=== PATIENT | male | born 1950 | race American Indian/Alaskan Native ===

== ENCOUNTER 2017-02-02 10:44 | Emergency (ER) | payer MEDICARE ==
--- NOTE | 2017-02-02 11:39 | Emergency Department Report ---
ED General Adult HPI - General Chief complaint: Tube Replacement Stated complaint: WAGNER CATHETER REMOVAL Time Seen by Provider: 02/02/17 11:31 Source: patient, EMS Mode of arrival: Stretcher Limitations: Physical Limitation - History of Present Illness Initial comments: Patient is a 66-year-old male past medical history of BPH. Who presents with Wagner catheter removal. Patient states that he was walking earlier on today and then his Wagner tubing got trapped and kinked and got pulled out. He denies having any pain or any blood coming from his urethra. He states that he came into the emergency department to get his Wagner catheter replaced. He has a catheter secondary to bladder obstruction. Patient didn't know the exact reason why he had a Wagner catheter. Pt has been givien cefuroximen 500mg every 12 hours for 7 days pt has finished his regimine on 01/25/17. - Related Data Allergies Allergy/AdvReac Type Severity Reaction Status Date / Time No Known Allergies Allergy Verified 02/02/17 10:57 ED Review of Systems ROS: Stated complaint: WAGNER CATHETER REMOVAL Other details as noted in HPI Constitutional: denies: chills, fever Eyes: denies: eye pain, eye discharge, vision change ENT: denies: ear pain, throat pain Respiratory: denies: cough, shortness of breath, wheezing Cardiovascular: denies: chest pain, palpitations Endocrine: no symptoms reported Gastrointestinal: denies: abdominal pain, nausea, diarrhea Genitourinary: other (chronic wagner) Musculoskeletal: denies: back pain, joint swelling, arthralgia Skin: denies: rash, lesions Neurological: denies: headache, weakness, paresthesias Psychiatric: denies: anxiety, depression Hematological/Lymphatic: denies: easy bleeding, easy bruising ED Past Medical Hx - Past Medical History Hx Dementia: Yes Additional medical history: MS. BPH - Social History Smoking Status: Never Smoker Substance Use Type: None ED Physical Exam - General Limitations: Physical Limitation General appearance: alert - Head Head exam: Present: atraumatic, normocephalic - Eye Eye exam: Present: normal appearance - ENT ENT exam: Present: normal exam - Neck Neck exam: Present: normal inspection - Respiratory Respiratory exam: Present: normal lung sounds bilaterally, respiratory distress - Cardiovascular Cardiovascular Exam: Present: regular rate, normal rhythm - GI/Abdominal GI/Abdominal exam: Present: soft, distended, tenderness - exam: Present: circumcision. Absent: testicular tenderness, urethral discharge, scrotal swelling External exam: Present: other (large urethral opening no signs of infection or bleeding). Absent: bleeding - Extremities Exam Extremities exam: Present: normal inspection, full ROM - Back Exam Back exam: Present: normal inspection, full ROM - Neurological Exam Neurological exam: Present: alert, oriented X3 - Psychiatric Psychiatric exam: Present: normal affect, normal mood - Skin Skin exam: Present: warm ED Course Vital Signs 02/02/17 02/02/17 10:53 12:15 Temperature 98.1 F Pulse Rate 90 Respiratory 16 18 Rate Blood Pressure 131/88 O2 Sat by Pulse 99 100 Oximetry - Reevaluation(s) Reevaluation #1: 02/02/17 12:37 Patient is feeling fine. Replacement Wagner is draining yellow urine. Discussed with patient Wagner catheter care instructions will send patient home Reevaluation #2: 02/02/17 13:29 We'll give patient a urine culture for baseline in case he comes back to the ER. Patient just finished a course of Cipro and does not need any antibiotics since he is having no signs of infection we'll send patient home. ED Medical Decision Making - Medical Decision Making Chief medical diagnosis: Wagner catheter displacement Differential diagnosis: Broken urethral catheter, UTI, equipment malfunction We'll replace wagner catheter and we'll send patient home. Critical care attestation.: If time is entered above; I have spent that time in minutes in the direct care of this critically ill patient, excluding procedure time. ED Disposition Clinical Impression: Wagner catheter problem Disposition: DC-01 TO HOME OR SELFCARE Is pt being admited?: No Does the pt Need Aspirin: No Condition: Good Instructions: Wagner Catheter Placement and Care (ED) Additional Instructions: Practice Wagner care make sure tubing does not become kinked. If you have blood coming through Wagner or its obstructed please come back to the emergency department. Referrals: PRIMARY CARE, [Primary Care Provider] - 3-5 Days Time of Disposition: 12:37
[2017-02-02 14:00] LABS: Bacteria,Urine 4+ /HPF (Negative)
[2017-02-02 14:15] LABS: WBC,Urine > 182.0 /HPF (0.0-6.0)
[2017-02-02 14:46] LABS: Bilirubin,Urine Negative (Negative); Blood,Urine 2+ (Negative); Ketones,Urine Negative (Negative)
[2017-02-02 14:48] LABS: Leukocyte Esterase,Urine Large (Negative); Nitrite,Urine Negative (Negative)
[2017-02-02 17:59] VITALS: BP 130/78
== END 2017-02-02 17:59 | disposition home or self-care (01) ==
LOC: ED 10:44
DX: T83.091A Other mechanical complication of indwelling urethral catheter, initial encounter (principal); F03.90 Unspecified dementia, unspecified severity, without behavioral disturbance, psychotic disturbance, mood disturbance, and anxiety; N40.0 Benign prostatic hyperplasia without lower urinary tract symptoms
CPT/HCPCS: 51702; 81001; 87086

== ENCOUNTER 2017-02-21 09:41 | Emergency (ER) | payer MEDICARE ==
[2017-02-21 10:09] VITALS: BP 116/79
[2017-02-21 12:18] LABS: Bilirubin,Urine NEG (Negative); Blood,Urine MOD (Negative); Ketones,Urine NEG (Negative); Leukocyte Esterase,Urine LG (Negative); Nitrite,Urine POS (Negative); Urobilinogen,Urine < 2.0 mg/dL (<2.0)
[2017-02-21 12:21] LABS: WBC,Urine > 182.0 /HPF (0.0-6.0)
--- NOTE | 2017-02-21 12:34 | Emergency Department Report ---
HPI - General Chief Complaint: Urogenital-Male Time Seen by Provider: 02/21/17 12:30 - HPI HPI: PATIENT IS HERE WITH CLOUDY URINE IN VEGA CATHETER, WITH FOUL SMELL. PATIENT HAS CHRONIC VEGA CATHETER WITH FREQUENT UTI. NO FEVER, NO N/V. ED Past Medical Hx - Past Medical History Previous Medical History?: Yes Hx Dementia: Yes Additional medical history: MS. BPH - Surgical History Past Surgical History?: No - Family History Family history: hypertension - Social History Smoking Status: Never Smoker Substance Use Type: None - Medications Home Medications: Home Medications Medication Instructions Recorded Confirmed Last Taken Type Ciprofloxacin HCl [Ciprofloxacin 500 mg PO Q12HR #14 tab 02/21/17 Unknown Rx TAB] ED Review of Systems ROS: Stated complaint: CATHETER BROKE/LEAKING Other details as noted in HPI Comment: All other systems reviewed and negative Endocrine: no symptoms reported Gastrointestinal: as per HPI Genitourinary: urgency Physical Exam - Physical Exam Vital Signs: Vital Signs 02/21/17 02/21/17 10:00 11:48 Temperature 98.3 F Pulse Rate 92 H Respiratory 16 18 Rate Blood Pressure 116/79 O2 Sat by Pulse 100 Oximetry Physical Exam: gen: alert and oriented x3 heent: perrla, eomi cv: rrr, nl s1, s2 lungs: cta bila abd: s,nt,nd, pos bs ext: no edema gu: VEGA AREA, D/C/I neuro: no deficits psych: normal mood, ED Course Vital Signs 02/21/17 02/21/17 10:00 11:48 Temperature 98.3 F Pulse Rate 92 H Respiratory 16 18 Rate Blood Pressure 116/79 O2 Sat by Pulse 100 Oximetry Critical care attestation.: If time is entered above; I have spent that time in minutes in the direct care of this critically ill patient, excluding procedure time. ED Disposition Clinical Impression: UTI (urinary tract infection) Disposition: DC-01 TO HOME OR SELFCARE Is pt being admited?: No Does the pt Need Aspirin: No Condition: Stable Prescriptions: Ciprofloxacin HCl [Ciprofloxacin TAB] 500 mg PO Q12HR #14 tab Referrals: PRIMARY CARE, [Primary Care Provider] - 3-5 Days
== END 2017-02-21 12:48 | disposition home or self-care (01) ==
LOC: ED 09:41
DX: N39.0 Urinary tract infection, site not specified (principal); F03.90 Unspecified dementia, unspecified severity, without behavioral disturbance, psychotic disturbance, mood disturbance, and anxiety
CPT/HCPCS: 81001; 99283

== ENCOUNTER 2017-03-30 00:18 | Emergency (ER) | payer MEDICARE ==
[2017-03-30] MEDS ORDERED: NACL 0.9% IR ONE (02:38)
--- NOTE | 2017-03-30 02:38 | Emergency Department Report ---
ED Male HPI - General Chief complaint: Urogenital-Male Stated complaint: BLEEDING Time Seen by Provider: 03/30/17 02:31 Source: patient, EMS (ems notes not available at time of chart dictation), RN notes reviewed Mode of arrival: Ambulatory Limitations: Physical Limitation, Other (patient is a poor historian) - History of Present Illness Initial comments: This is a 66-year-old male, the patient is previously unknown to me, earlier on this month, patient had a prostate procedure (he is demented and doesn't know which one), patient had an bleeding from his penis for 2 days Patient presents to the ER today with a complaint of penile bleeding. It is constant. He has no pain. Patient indicates no exacerbating or relieving factors. No other complaints. As per triage nurse documentation, patient seen by local urology specialist, Dr. Annmarie THOMSON Complaint: other (patient is a poor historian) -: Gradual Severity: moderate Consistency: constant Improves with: none Worsens with: none recent surgery denies other symptoms, blood in urine. denies: urinary retention - Related Data Previous Rx's Medication Instructions Recorded Last Taken Type Ciprofloxacin HCl [Ciprofloxacin 500 mg PO Q12HR #14 tab 02/21/17 Unknown Rx TAB] Nitrofurantoin Bladen/M-Cryst 100 mg PO Q12HR #14 capsule 03/30/17 Unknown Rx [Macrobid CAP] Allergies Allergy/AdvReac Type Severity Reaction Status Date / Time No Known Allergies Allergy Verified 02/02/17 10:57 ED Review of Systems ROS: Stated complaint: BLEEDING Other details as noted in HPI Constitutional: fever Eyes: denies: eye discharge ENT: denies: epistaxis Respiratory: denies: cough Cardiovascular: denies: chest pain Gastrointestinal: denies: abdominal pain Genitourinary: hematuria Musculoskeletal: denies: back pain Skin: denies: lesions Neurological: denies: weakness ED Past Medical Hx - Past Medical History Hx Dementia: Yes Additional medical history: MS. BPH - Social History Smoking Status: Never Smoker Substance Use Type: None - Medications Home Medications: Home Medications Medication Instructions Recorded Confirmed Last Taken Type Ciprofloxacin HCl [Ciprofloxacin 500 mg PO Q12HR #14 tab 02/21/17 Unknown Rx TAB] Nitrofurantoin Bladen/M-Cryst 100 mg PO Q12HR #14 capsule 03/30/17 Unknown Rx [Macrobid CAP] ED Physical Exam - General Limitations: Other (dementia, patient is a poor historian) General appearance: alert, in no apparent distress - Head Head exam: Present: atraumatic, normocephalic - Eye Eye exam: Present: normal appearance. Absent: nystagmus - ENT ENT exam: Present: normal exam, normal orophraynx, mucous membranes moist, normal external ear exam - Neck Neck exam: Present: normal inspection, full ROM. Absent: tenderness, meningismus - Respiratory Respiratory exam: Present: normal lung sounds bilaterally. Absent: respiratory distress, wheezes, rales, rhonchi, stridor, chest wall tenderness, accessory muscle use, decreased breath sounds - Cardiovascular Cardiovascular Exam: Present: regular rate, normal rhythm, normal heart sounds. Absent: bradycardia, tachycardia, irregular rhythm, systolic murmur, diastolic murmur, rubs, gallop - GI/Abdominal GI/Abdominal exam: Present: soft, normal bowel sounds. Absent: distended, tenderness, guarding, rebound, rigid - Rectal Rectal exam: Present: deferred - exam: Present: normal inspection External exam: Present: normal external exam, other (gross bloody discharge coming from the urethral meatus) - Extremities Exam Extremities exam: Present: normal inspection, full ROM, normal capillary refill. Absent: pedal edema, joint swelling, calf tenderness - Back Exam Back exam: Present: normal inspection, full ROM. Absent: tenderness, CVA tenderness (R), CVA tenderness (L), muscle spasm, paraspinal tenderness, vertebral tenderness - Neurological Exam Neurological exam: Present: alert, other (Extraocular movements intact. Tongue midline. No facial droop. Facial sensation intact to light touch in the V1, V2 , V3 distribution bilaterally. 5 and 5 strength in 4 extremities.. Sensation is intact to light touch in 4 extremities.). Absent: motor sensory deficit - Psychiatric Psychiatric exam: Present: normal affect, normal mood - Skin Skin exam: Present: warm, dry, intact, normal color. Absent: rash ED Course Vital Signs 03/30/17 04:43 Temperature 98.2 F Pulse Rate 91 H Respiratory 18 Rate Blood Pressure 122/73 [Left] O2 Sat by Pulse 100 Oximetry ED Medical Decision Making - Lab Data Result diagrams: 03/30/17 02:38 03/30/17 02:38 Lab Results 03/30/17 03/30/17 03/30/17 Range/Units 02:29 02:38 02:38 WBC 19.3 H (4.5-11.0) K/mm3 RBC 3.89 (3.65-5.03) M/mm3 Hgb 11.1 L (11.8-15.2) gm/dl Hct 33.9 L (35.5-45.6) % MCV 87 (84-94) fl MCH 29 (28-32) pg MCHC 33 (32-34) % RDW 15.0 (13.2-15.2) % Plt Count 348 (140-440) K/mm3 Lymph % (Auto) 8.7 L (13.4-35.0) % Bladen % (Auto) 4.1 (0.0-7.3) % Eos % (Auto) 0.1 (0.0-4.3) % Baso % (Auto) 0.4 (0.0-1.8) % Lymph # 1.7 (1.2-5.4) K/mm3 Bladen # 0.8 (0.0-0.8) K/mm3 Eos # 0.0 (0.0-0.4) K/mm3 Baso # 0.1 (0.0-0.1) K/mm3 Seg Neutrophils % 86.7 H (40.0-70.0) % Seg Neutrophils # 16.7 H (1.8-7.7) K/mm3 PT 14.0 (12.2-14.9) Sec. INR 1.09 (0.87-1.13) APTT 24.8 (24.2-36.6) Sec. Sodium (137-145) mmol/L Potassium (3.6-5.0) mmol/L Chloride (98-107) mmol/L Carbon Dioxide (22-30) mmol/L Anion Gap mmol/L BUN (9-20) mg/dL Creatinine (0.8-1.5) mg/dL Estimated GFR ml/min BUN/Creatinine Ratio % Glucose (75-100) mg/dL Calcium (8.4-10.2) mg/dL Urine Color Red (Yellow) Urine Turbidity Turbid (Clear) Urine pH 7.0 (5.0-7.0) Ur Specific [place] 1.028 (1.003-1.030) Urine Protein Color interference (Negative) mg/dL Urine Glucose (UA) Color interference (Negative) mg/dL Urine Ketones 20 (Negative) mg/dL Urine Blood Lg (Negative) Urine Nitrite Color interference (Negative) Urine Bilirubin Neg (Negative) Urine Urobilinogen < 2.0 (<2.0) mg/dL Ur Leukocyte Esterase Neg (Negative) Urine WBC (Auto) > 182.0 H (0.0-6.0) /HPF Urine RBC (Auto) > 182.0 (0.0-6.0) /HPF U Epithel Cells (Auto) 4.0 (0-13.0) /HPF Urine Bacteria (Auto) 1+ (Negative) /HPF Urine WBC Clumps 1+ /HPF Urine Mucus Few /HPF Blood Type Antibody Screen 03/30/17 03/30/17 Range/Units 02:38 02:40 WBC (4.5-11.0) K/mm3 RBC (3.65-5.03) M/mm3 Hgb (11.8-15.2) gm/dl Hct (35.5-45.6) % MCV (84-94) fl MCH (28-32) pg MCHC (32-34) % RDW (13.2-15.2) % Plt Count (140-440) K/mm3 Lymph % (Auto) (13.4-35.0) % Bladen % (Auto) (0.0-7.3) % Eos % (Auto) (0.0-4.3) % Baso % (Auto) (0.0-1.8) % Lymph # (1.2-5.4) K/mm3 Bladen # (0.0-0.8) K/mm3 Eos # (0.0-0.4) K/mm3 Baso # (0.0-0.1) K/mm3 Seg Neutrophils % (40.0-70.0) % Seg Neutrophils # (1.8-7.7) K/mm3 PT (12.2-14.9) Sec. INR (0.87-1.13) APTT (24.2-36.6) Sec. Sodium 139 (137-145) mmol/L Potassium 4.4 (3.6-5.0) mmol/L Chloride 100.2 (98-107) mmol/L Carbon Dioxide 25 (22-30) mmol/L Anion Gap 18 mmol/L BUN 16 (9-20) mg/dL Creatinine 0.9 (0.8-1.5) mg/dL Estimated GFR > 60 ml/min BUN/Creatinine Ratio 17.77 % Glucose 130 H (75-100) mg/dL Calcium 9.3 (8.4-10.2) mg/dL Urine Color (Yellow) Urine Turbidity (Clear) Urine pH (5.0-7.0) Ur Specific [place] (1.003-1.030) Urine Protein (Negative) mg/dL Urine Glucose (UA) (Negative) mg/dL Urine Ketones (Negative) mg/dL Urine Blood (Negative) Urine Nitrite (Negative) Urine Bilirubin (Negative) Urine Urobilinogen (<2.0) mg/dL Ur Leukocyte Esterase (Negative) Urine WBC (Auto) (0.0-6.0) /HPF Urine RBC (Auto) (0.0-6.0) /HPF U Epithel Cells (Auto) (0-13.0) /HPF Urine Bacteria (Auto) (Negative) /HPF Urine WBC Clumps /HPF Urine Mucus /HPF Blood Type B POSITIVE Antibody Screen Negative - Medical Decision Making Differential diagnoses: Post operative bleeding, hematuria, cancer, tumor, malignancy, urinary tract infection Assessment and plan: 66-year-old male status post recent urologic instrumentation, now with hematuria, he is placed on a 3-way Healy catheter, and a Méndez drip. His initial urinalysis was quite bloody and turbid, after aggressive irrigation, his urine has cleared substantially. He is afebrile, with reassuring vital signs, and is in no distress. Patient will be placed on a leg bag with a Healy catheter, he will be started on Macrobid empirically, and discharge instructions will be written for his personal prison to have him closely follow up with his outpatient urology specialist. This hospital does not have urology on-call, and we contacted the patient's urologist at listed phone numbers ( [facility] [address] [place], [place] [address] VIEW MAP >> ) and left two messages for callback. However, no one has called back. However, given that the patient is afebrile, with stable vital signs, and his gross hematuria has resolved, I do not believe the patient requires emergent urologic consultation right now. He does need to follow up as outpatient urology specialist, and able being common upon his personal prison to follow- up on this and arrange this. Critical care attestation.: If time is entered above; I have spent that time in minutes in the direct care of this critically ill patient, excluding procedure time. ED Disposition Clinical Impression: Hematuria Disposition: DC-01 TO HOME OR SELFCARE Is pt being admited?: No Does the pt Need Aspirin: No Condition: Stable Instructions: Acute Hematuria (ED) Additional Instructions: Continue current outpatient medications. Take the Macrobid antibiotic as directed. Follow up with urology specialist within the next 3-5 days. Keep the leg bag in place until instructed to discontinue leg bag and Healy catheter by urology specialist. [facility] [address] [place] [address] VIEW MAP >> Return to the ER right away with new pain, worsened pain, migration of pain, fevers, chills, lethargy, irritability, projectile vomiting, change in mental status, inability to tolerate liquid feeds. Cultures were sent today, results will be available in the next 3-5 days, please have a primary care doctor contact the medical records department to obtain culture results. Referrals: PRIMARY MD SAMIA [Primary Care Provider] - 3-5 Days
[2017-03-30 02:49] LABS: Bilirubin,Urine NEG (Negative); Blood,Urine LG (Negative); Ketones,Urine 20 mg/dL (Negative); Leukocyte Esterase,Urine NEG (Negative); Urobilinogen,Urine < 2.0 mg/dL (<2.0)
[2017-03-30 02:53] LABS: Nitrite,Urine Color Interference (Negative); RBC,Urine > 182.0 /HPF (0.0-6.0); WBC,Urine > 182.0 /HPF (0.0-6.0)
[2017-03-30 02:54] LABS: Bacteria,Urine 1+ /HPF (Negative); Mucus,Urine Few /HPF; Protein,Urine Color Interference mg/dL (Negative)
[2017-03-30 03:04] LABS: Basophils % (Auto) 0.4 % (0.0-1.8); Eosinophils % (Auto) 0.1 % (0.0-4.3); Hematocrit 33.9 % (35.5-45.6); Hemoglobin 11.1 gm/dl (11.8-15.2); Mean Corpuscular HGB Conc 33 % (32-34); Mean Corpuscular Hemoglobin 29 pg (28-32); Mean Corpuscular Volume 87 fl (84-94); Platelet Count 348 K/mm3 (140-440); Red Blood Count 3.89 M/mm3 (3.65-5.03); White Blood Count 19.3 K/mm3 (4.5-11.0)
[2017-03-30 03:12] LABS: Anion Gap 18 mmol/L; BUN/Creatinine Ratio 17.77; Blood Urea Nitrogen 16 mg/dL (9-20); Calcium 9.3 mg/dL (8.4-10.2); Carbon Dioxide 25 mmol/L (22-30); Chloride 100.2 mmol/L (98-107); Glucose 130 mg/dL (75-100); Potassium 4.4 mmol/L (3.6-5.0); Sodium 139 mmol/L (137-145)
[2017-03-30 03:16] LABS: INR 1.09 (0.87-1.13); Partial Thromboplastin Time 24.8 Sec. (24.2-36.6)
[2017-03-30 06:32] VITALS: BP 125/71
[2017-03-30] MEDS ORDERED: NACL 0.9% ONE (10:32)
== END 2017-03-30 05:55 | disposition home or self-care (01) ==
LOC: ED 00:18
DX: R31.9 Hematuria, unspecified (principal)
CPT/HCPCS: 36415; 51702; 80048; 81001; 85025; 85610; 85730; 86850; 86900; 86901; 87076; 87086; 87186; 99284; A4217